=== PATIENT | female | born 1970 | race African-American/Black ===

== ENCOUNTER 2018-11-28 20:06 | Emergency (ER) | payer MEDICAID ==
[~2018-11-28] VITALS: Ht 172.7 cm; Wt 136.4 kg
[2018-11-28 20:16] VITALS: Ht 172.7 cm; Wt 136.4 kg
[2018-11-28] MEDS ORDERED: GLUCOPHAGE500 MG PO (20:17)
[2018-11-28] MEDS ORDERED: LIPITOR20 MG PO (20:18)
[2018-11-28] MEDS ORDERED: LISINOPRIL20 MG PO (20:18)
[2018-11-28] MEDS ORDERED: HYDROCHLOROTHIA25 MG PO (20:18)
[2018-11-28] MEDS ORDERED: ZANAFLEX4 MG PO (20:19)
[2018-11-28] MEDS ORDERED: ATIVAN1 MG PO (20:19)
[2018-11-28] MEDS ORDERED: WELLBUTRIN SR150 MG PO (20:19)
[2018-11-28] MEDS ORDERED: PERCOCET 7.5/321 TAB PO (20:19)
[2018-11-28] MEDS ORDERED: ERYTHROMYCIN OPT1 GM RIGHT EYE (21:31)
[2018-11-28 21:51] VITALS: BP 130/78
== END 2018-11-28 21:52 | disposition home or self-care (01) ==
LOC: D.ER 20:06
DX: S05.01XA Injury of conjunctiva and corneal abrasion without foreign body, right eye, initial encounter (principal); X58.XXXA Exposure to other specified factors, initial encounter; Y93.89 Activity, other specified; Y92.89 Other specified places as the place of occurrence of the external cause